=== PATIENT | male | born 1980 | race Caucasian/White ===

== ENCOUNTER 2022-02-04 18:11 | Emergency (ER) | payer SELFPAY ==
[~2022-02-04] VITALS: Ht 180.3 cm; Wt 59.0 kg
--- NOTE | 2022-02-04 18:16 | NUR ---
PATIENT BIBA TO BED 5.
[2022-02-04 18:18] VITALS: BP 132/70
--- NOTE | 2022-02-04 18:24 | NUR ---
41 y/o male biba, homeless, per [facility], pt has been stuck in tree for 12 hours. states he was in the tree because he was hiding from "6 dogs with green eyes" that were chasing him. pt fell from tree, no loc/syncope. pt is denying pain at this time. a&ox4, [id number]. denies si, harm to self or others. patient positioned for comfort. hob elevated. bed down. ermd made aware of pt. pmh: schizophrenia nka med: non compliant with meds.
--- NOTE | 2022-02-04 18:24 | NUR ---
pt given water at this time upon request
[2022-02-04 19:23] LABS: BASOPHILS # (AUTO) 0.1 K/uL (0.00-0.22); BASOPHILS % (AUTO) 0.4 % (0.0-2.0); HEMATOCRIT 35.2 % (36-52); HEMOGLOBIN 11.7 g/dL (12.0-18.0); LYMPHOCYTES # (AUTO) 0.8 K/uL (2.0-11.5); LYMPHOCYTES % (AUTO) 4.4 % (20.5-51.1); MEAN CORPUSCULAR HEMOGLOBIN 29 pg (27-31); MEAN CORPUSCULAR HGB CONC 33 g/dL (33-37); MEAN CORPUSCULAR VOLUME 88.2 fL (80-94); MONOCYTES # (AUTO) 1.1 K/uL (0.8-1.0); MONOCYTES % (AUTO) 6.2 % (1.7-9.3); NEUTROPHILS # (AUTO) 15.5 K/uL (1.8-7.7); PLATELET COUNT (AUTO) 322 K/uL (140-450); RED CELL DISTRIBUTION WIDTH 14.4 % (11.6-13.7); WHITE BLOOD COUNT (AUTO) 17.4 K/uL (4.8-10.8)
[2022-02-04 19:54] LABS: ALBUMIN 4.4 g/dL (3.4-5.0); ANION GAP 16.4 (8-16); ASPARTATE AMINOTRANSFERASE 39 U/L (15-37); CARBON DIOXIDE 27.3 mmol/L (21-32); CHLORIDE 100 mmol/L (98-107); GFR ARICAN-AMERICAN 106 mL/min (>90); GLUCOSE 83 mg/dL (74-106); POTASSIUM 3.7 mmol/L (3.5-5.1); SODIUM SERUM 140 mmol/L (136-145); TOTAL BILIRUBIN 0.5 mg/dL (0.0-1.0); UREA NITROGEN, BLOOD 20 mg/dL (7-18)
[2022-02-04 20:02] LABS: ACETAMINOPHEN < 0.5 ug/ml (10-30); SALICYLATE < 2.8 mg/dL (2.8-20.0)
--- NOTE | 2022-02-04 20:13 | NUR ---
PT RETURN FROM CT
[2022-02-04] MEDS ORDERED: ASPIRIN 325 MG TAB PO ONE (20:30)
[2022-02-04 21:04] VITALS: BP 132/70
--- NOTE | 2022-02-04 21:04 | NUR ---
PATIENT ELOPED FROM FACILITY. DISCHARGE INSTRUCTIONS NOT GIVEN TO PATIENT. DR. YOON NOTIFIED.
--- NOTE | 2022-02-04 21:04 | NUR ---
PT STATED HE WAS GOING TO SMOKE A CIGRETTE, PT EDUCATED ON HOSPITAL POLICY. PT STATED "I DONT CARE IT'S A HOSPITAL, IM LEAVING". IS AWARE.
== END 2022-02-04 21:04 | disposition left against medical advice (07) ==
LOC: MED 18:11
DX: S09.90XA Unspecified injury of head, initial encounter (principal); R77.8 Other specified abnormalities of plasma proteins; F20.9 Schizophrenia, unspecified; W14.XXXA Fall from tree, initial encounter; Y93.89 Activity, other specified; Y92.89 Other specified places as the place of occurrence of the external cause; Y99.8 Other external cause status
CPT/HCPCS: 36415; 70450; 71045; 80053; 82550; 82553; 84484; 85025; 93005; 99285; G0480; G0482; Q0092